=== PATIENT | male | born 1980 | race Native Hawaiian/Other Pacific Islander ===

== ENCOUNTER 2017-06-21 06:49 | Day surgery (SDC) | payer OTHER ==
[2017-06-21 07:33] VITALS: BMI 20.2
--- NOTE | 2017-06-21 09:16 | CP.SDSHP ---
Same Day Surgery H & P - History Proposed Procedure: colonoscopy Pre-Op Diagnosis: ulcerative colitis - Allergies Allergies: Allergies No Known Allergies Allergy (Verified 06/21/17 07:33) - Physical Exam General Appearance: NAD Vital Signs: Vital Signs 06/21/17 07:46 Temperature 97.9 F Pulse Rate 61 Respiratory 16 Rate Blood Pressure 135/78 O2 Sat by Pulse 97 Oximetry Mental Status: Alert & Oriented x3 Neuro: WNL Heart: WNL Lungs: WNL GI: WNL - {Optional Preform as Required} Abdomen: WNL - Impression Pt. Evaluated Today:Candidate for Anesthesia & Procedure: Yes - Date & Time Date: 06/21/17 Time: 09:10 Short Stay Discharge - Short Stay Discharge Admitting Diagnosis/Reason for Visit: ULCERATIEVE (CHRONIC) PANCO Disposition: HOME/ ROUTINE
[2017-06-21] MEDS ORDERED: Propofol 10 mg/ml Inj (20 ML) ONE ×2 (09:17)
[2017-06-21] MEDS ORDERED: Lactated Ringer's 500 ML IV SCH (09:45)
[2017-06-21 10:01] VITALS: O2SAT 100
[2017-06-21 10:19] VITALS: TEMP 98.6
[2017-06-21 11:10] VITALS: BP 101/67; PULSE 67; RESP 17
== END 2017-06-21 11:06 | disposition home or self-care (01) ==
LOC: C.ENDO 06:49
PROVIDERS: ATTEND Internal Medicine Gastroenterology
DX: K52.9 Noninfective gastroenteritis and colitis, unspecified (principal); K64.8 Other hemorrhoids; K62.89 Other specified diseases of anus and rectum
CPT/HCPCS: 45380; 88305; J2704; J7120